=== PATIENT | female | born 1990 | race Caucasian/White ===

== ENCOUNTER → 2020-06-07 | Outpatient (CLI) | payer SELFPAY | LOC: M LABSMTC 09:02 | PROVIDERS: ATTEND Pediatrics | DX: Z20.828 Contact with and (suspected) exposure to other viral communicable diseases (principal) ==

== ENCOUNTER → 2021-09-01 | Outpatient (REF) | payer OTHER ==
[2021-09-01 12:50] LABS: HEMATOCRIT 38.7 % (36.0-47.0); HEMOGLOBIN 12.7 g/dl (12.0-15.5); MEAN CORPUSCULAR HEMOGLOBIN 31.1 pg (27.0-33.0); MEAN CORPUSCULAR HGB CONC 32.8 g/dl (32.0-36.5); MEAN CORPUSCULAR VOLUME 94.9 fl (80.0-96.0); PLATELET COUNT, AUTOMATED 250 10^3/uL (150-450); RED BLOOD COUNT 4.08 10^6/uL (4.00-5.40); WHITE BLOOD COUNT 6.5 10^3/uL (4.0-10.0)
[2021-09-01 13:28] LABS: ALT/SGPT 17 U/L (12-78); BILIRUBIN,TOTAL 0.4 MG/DL (0.2-1.0); BLOOD UREA NITROGEN 13 MG/DL (7-18); CALCIUM LEVEL 9.5 MG/DL (8.5-10.1); CARBON DIOXIDE LEVEL 28 MEQ/L (21-32); CHLORIDE LEVEL 108 MEQ/L (98-107); CHOLESTEROL LEVEL 170 MG/DL (<200); CHOLESTEROL RISK RATIO 3.333 (<5); CREATININE FOR GFR 0.74 MG/DL (0.55-1.30); FREE T4 1.16 NG/DL (0.76-1.46); GLOMERULAR FILTRATION RATE > 60.0 (>60); GLUCOSE, FASTING 93 MG/DL (70-100); HDL CHOLESTEROL 51 MG/DL (>40); LDL CHOLESTEROL 102 MG/DL (<100); NON-HDL-C 119 MG/DL; POTASSIUM SERUM 4.2 MEQ/L (3.5-5.1); SODIUM LEVEL 141 MEQ/L (136-145); TOTAL PROTEIN 6.8 GM/DL (6.4-8.2); TRIGLYCERIDES LEVEL 86 MG/DL (<150)
[2021-09-01 13:31] LABS: FOLATE 19.4 NG/ML; VITAMIN B12 LEVEL 690 PG/ML
== END ==
LOC: M SFHCADAM 09:07
PROVIDERS: ATTEND Physician Assistant
DX: R63.5 Abnormal weight gain (principal); E53.8 Deficiency of other specified B group vitamins; K64.9 Unspecified hemorrhoids; Z13.220 Encounter for screening for lipoid disorders; Z13.1 Encounter for screening for diabetes mellitus
CPT/HCPCS: 80053; 80061; 82607; 82746; 84439; 84443; 85027; G0463

== ENCOUNTER → 2022-06-10 | Outpatient (CLI) | payer OTHER | LOC: M SOG 13:37 | PROVIDERS: ATTEND Physician Assistant | DX: M79.641 Pain in right hand (principal); M79.642 Pain in left hand ==

== ENCOUNTER → 2022-08-19 | Outpatient (CLI) | payer OTHER ==
[~2022-08-19] MED LIST: PROM12.56 PO
[2022-08-19 18:00] LABS: HEMATOCRIT 35.7 % (36.0-47.0); HEMOGLOBIN 11.8 g/dl (12.0-15.5); MEAN CORPUSCULAR HEMOGLOBIN 31.4 pg (27.0-33.0); MEAN CORPUSCULAR HGB CONC 33.1 g/dl (32.0-36.5); MEAN CORPUSCULAR VOLUME 94.9 fl (80.0-96.0); PLATELET COUNT, AUTOMATED 226 10^3/uL (150-450); RED BLOOD COUNT 3.76 10^6/uL (4.00-5.40)
[2022-08-19 20:04] LABS: GC DNA AMPLIFICATION NEGATIVE (NEGATIVE)
[2022-08-19 20:49] LABS: HIV 1&2 SCREEN CENTAUR NEGATIVE (NEGATIVE)
== END ==
LOC: M PLALAB 15:56
PROVIDERS: ATTEND Obstetrics & Gynecology
DX: Z34.91 Encounter for supervision of normal pregnancy, unspecified, first trimester (principal)
CPT/HCPCS: 36415; 85027; 86762; 86780; 86803; 86850; 86900; 86901; 87086; 87340; 87389; 87624; 87810; 87850; G0123

== ENCOUNTER → 2022-09-17 | Outpatient (CLI) | payer OTHER | LOC: M WHC 08:40 | PROVIDERS: ATTEND Advanced Practice Midwife | DX: Z34.02 Encounter for supervision of normal first pregnancy, second trimester (principal) ==

== ENCOUNTER → 2022-10-29 | Outpatient (CLI) | payer OTHER ==
[2022-10-29 17:26] LABS: HEMATOCRIT 35.5 % (36.0-47.0); HEMOGLOBIN 11.6 g/dl (12.0-15.5); MEAN CORPUSCULAR HEMOGLOBIN 31.1 pg (27.0-33.0); MEAN CORPUSCULAR HGB CONC 32.7 g/dl (32.0-36.5); MEAN CORPUSCULAR VOLUME 95.2 fl (80.0-96.0); PLATELET COUNT, AUTOMATED 222 10^3/uL (150-450); RED BLOOD COUNT 3.73 10^6/uL (4.00-5.40); WHITE BLOOD COUNT 13.4 10^3/uL (4.0-10.0)
[2022-10-29 18:59] LABS: GC DNA AMPLIFICATION NEGATIVE (NEGATIVE)
== END ==
LOC: M PLALAB 14:30
PROVIDERS: ATTEND Specialist
DX: Z34.02 Encounter for supervision of normal first pregnancy, second trimester (principal); Z3A.00 Weeks of gestation of pregnancy not specified

== ENCOUNTER 2022-12-20 09:40 | Outpatient (CLI) | payer OTHER ==
[~2022-12-20] VITALS: Ht 167.6 cm; Wt 91.6 kg
[2022-12-20 10:02] VITALS: BP 135/83
[2022-12-20] MEDS ORDERED: PRENTAB9 PO (10:11)
[2022-12-20] MEDS ORDERED: MAGN400C2 PO (10:12)
[2022-12-20] MEDS ORDERED: HOME MED LIST COMPLETE! XX SCH (10:15)
[2022-12-20 11:05] VITALS: BP 125/79
[2022-12-20] MEDS ORDERED: LACTATED RINGER'S 1000 ML IV ONE (11:35)
[2022-12-20] MEDS ORDERED: PROMETHAZINE 25MG/ML 1ML VIAL IV ONE (11:35)
[2022-12-20] MEDS ORDERED: METOCLOPRAMIDE INJ 10MG/2ML VIAL IV ONE (11:35)
[2022-12-20 12:07] LABS: HEMATOCRIT 37.2 % (36.0-47.0); HEMOGLOBIN 12.1 g/dl (12.0-15.5); MEAN CORPUSCULAR HEMOGLOBIN 30.8 pg (27.0-33.0); MEAN CORPUSCULAR HGB CONC 32.5 g/dl (32.0-36.5); MEAN CORPUSCULAR VOLUME 94.7 fl (80.0-96.0); PLATELET COUNT, AUTOMATED 196 10^3/uL (150-450); RED BLOOD COUNT 3.93 10^6/uL (4.00-5.40); WHITE BLOOD COUNT 15.8 10^3/uL (4.0-10.0)
[2022-12-20 12:13] VITALS: BP 139/81
[2022-12-20 12:37] LABS: ALBUMIN 2.7 G/DL (3.2-5.2); ALKALINE PHOSPHATASE 95 U/L (46-116); ALT/SGPT 15 U/L (7.0-40); AST/SGOT 16 U/L (<34); BILIRUBIN,TOTAL 0.8 MG/DL (0.3-1.2); BLOOD UREA NITROGEN 10 MG/DL (9-23); CALCIUM LEVEL 8.3 MG/DL (8.5-10.1); CARBON DIOXIDE LEVEL 21 MMOL/L (20-31); CHLORIDE LEVEL 104 MMOL/L (98-107); CREATININE FOR GFR 0.47 MG/DL (0.55-1.30); GLOMERULAR FILTRATION RATE > 60.0 (>60); GLUCOSE, FASTING 94 MG/DL (60-100); POTASSIUM SERUM 3.9 MMOL/L (3.5-5.1); SODIUM LEVEL 136 MMOL/L (136-145)
[2022-12-20 18:20] LABS: TOTAL PROTEIN 5.8 G/DL (5.7-8.2)
== END 2022-12-20 14:15 | disposition home or self-care (01) ==
LOC: M LDO 09:40
PROVIDERS: ATTEND Advanced Practice Midwife
DX: O21.8 Other vomiting complicating pregnancy (principal); O26.893 Other specified pregnancy related conditions, third trimester; R19.7 Diarrhea, unspecified; Z3A.33 33 weeks gestation of pregnancy
CPT/HCPCS: 36415; 59025; 80053; 85027; 96374; 96376; G0463; J2550

== ENCOUNTER → 2023-01-12 | Outpatient (REF) | payer OTHER ==
[~2023-01-12] MED LIST changes: +MAGN400C2 PO; +PRENTAB9 PO
== END ==
LOC: M SFHCWAGY 17:20
PROVIDERS: ATTEND Obstetrics & Gynecology
DX: Z34.93 Encounter for supervision of normal pregnancy, unspecified, third trimester (principal)

== ENCOUNTER → 2023-02-02 | Outpatient (CLI) | payer OTHER ==
[2023-02-02 17:30] LABS: HEMATOCRIT 37.7 % (36.0-47.0); HEMOGLOBIN 12.5 g/dl (12.0-15.5); MEAN CORPUSCULAR HEMOGLOBIN 31.9 pg (27.0-33.0); MEAN CORPUSCULAR HGB CONC 33.2 g/dl (32.0-36.5); MEAN CORPUSCULAR VOLUME 96.2 fl (80.0-96.0); PLATELET COUNT, AUTOMATED 223 10^3/uL (150-450); RED BLOOD COUNT 3.92 10^6/uL (4.00-5.40); WHITE BLOOD COUNT 13.4 10^3/uL (4.0-10.0)
[2023-02-02 17:51] LABS: URIC ACID 5.1 MG/DL (3.1-7.8)
[2023-02-02 17:53] LABS: LDH LACTATE DEHYDROGENASE 155 U/L (120-246)
[2023-02-02 17:54] LABS: ALT/SGPT < 9 U/L (7.0-40); AST/SGOT 12 U/L (<34); BILIRUBIN,TOTAL 0.4 MG/DL (0.3-1.2); CREATININE FOR GFR 0.55 MG/DL (0.55-1.30); GLOMERULAR FILTRATION RATE > 60.0 (>60)
[2023-02-02 18:02] LABS: TOTAL PROTEIN,RANDOM URINE 8.5 MG/DL (0.0-14.0)
[2023-02-02 18:07] LABS: CREATININE,RANDOM URINE 74.2 MG/DL
== END ==
LOC: M PLALAB 16:05
PROVIDERS: ATTEND Advanced Practice Midwife
DX: Z34.03 Encounter for supervision of normal first pregnancy, third trimester (principal)

== ENCOUNTER 2023-02-14 07:14 | Inpatient (IN) | payer OTHER ==
[2023-02-14] VITALS (20 sets, daily range): BP systolic 109–156; BP diastolic 55–96
[~2023-02-14] VITALS: Ht 167.6 cm; Wt 100.7 kg
[2023-02-14] MEDS ORDERED: LACTATED RINGER'S 1000 ML IV STA (08:18)
[2023-02-14] MEDS ORDERED: OXYTOCIN INJ 10UNITS/ML 1ML VIAL IM PRN (08:20)
[2023-02-14] MEDS ORDERED: OXYTOCIN DRIP 30 UNITS in IV 1 EA IV PRN (08:20)
[2023-02-14] MEDS ORDERED: LIDOCAINE 1% MDV 20ML VIAL INFIL PRN (08:20)
[2023-02-14] MEDS ORDERED: TRANEXAMIC ACID INJection 1,000 MG in NS 100 ML IV PRN (08:20)
[2023-02-14] MEDS ORDERED: METHYLERGONOVINE MALEATE 0.2MG/ML 1ML VIAL IM PRN (08:20)
[2023-02-14] MEDS ORDERED: CARBOPROST TROMETHAMINE 250 MCG/ML AMP IM PRN (08:20)
[2023-02-14] MEDS ORDERED: COLA100C5 PO (08:53)
[2023-02-14] MEDS ORDERED: TUMS500C PO (08:53)
[2023-02-14] MEDS ORDERED: ACET325C5 PO (08:53)
[2023-02-14] MEDS ORDERED: HOME MED LIST COMPLETE! XX SCH (08:55)
[2023-02-14 09:10] LABS: HEMOGLOBIN 11.7 g/dl (12.0-15.5); MEAN CORPUSCULAR HGB CONC 33.4 g/dl (32.0-36.5); MEAN CORPUSCULAR VOLUME 95.6 fl (80.0-96.0); PLATELET COUNT, AUTOMATED 171 10^3/uL (150-450); RED BLOOD COUNT 3.66 10^6/uL (4.00-5.40); WHITE BLOOD COUNT 11.3 10^3/uL (4.0-10.0)
[2023-02-14] MEDS: miSOPROStol 50MCG 1/2 TABLET PO SCH ×2 (10:24→14:24)
[2023-02-14] MEDS ORDERED: PROMETHAZINE 25MG/ML 1ML VIAL IV ONE (20:25)
[2023-02-14] MEDS ORDERED: diphenhydrAMINE 50MG/ML VIAL IV PRN (21:30)
[2023-02-14] MEDS ORDERED: LR 500 ML IV PRN (21:30)
[2023-02-14] MEDS ORDERED: EPIDURAL/PCA KEYS XX PRN (21:30)
[2023-02-14] MEDS ORDERED: ePHEDrine SULFATE 25 MG/5 ML(5MG/ML) SYRINGE IVP PRN (21:30)
[2023-02-14] MEDS ORDERED: ONDANSETRON 4MG 2ML VIAL IV PRN (21:30)
[2023-02-14] MEDS ORDERED: ROPIVACAINE HCL IVBAG 200 ML EPIDURAL SCH (21:30)
[2023-02-14] MEDS ORDERED: NALOXONE INJ 0.4MG/1ML VIAL IV PRN (21:30)
[2023-02-14] MEDS ORDERED: OXYTOCIN DRIP 30 UNITS in IV 1 EA IV SCH (23:40)
[2023-02-14] MEDS ORDERED: LR 1,000 ML IV SCH (23:40)
[2023-02-15] VITALS (34 sets, daily range): BP systolic 92–144; BP diastolic 53–96
[2023-02-15] MEDS ORDERED: OMEPRAZOLE 20MG CAP PO ONE (07:50)
[2023-02-15] MEDS ORDERED: ceFAZolin SOD 2 GM in IV 1 EA IV ONE (11:45)
[2023-02-15] MEDS ORDERED: AZITHROMYCIN INJ 500 MG, VIAL MATE ADAPTER 1 EACH in NS 250 ML IV ONE (11:45)
[2023-02-15] MEDS ORDERED: BICITRA 30ML SOLN UDC PO ONE (11:45)
[2023-02-15] MEDS ORDERED: ePHEDrine SULFATE 25 MG/5 ML(5MG/ML) SYRINGE As Ordered ONE (12:38)
[2023-02-15] MEDS ORDERED: OXYTOCIN 30UNITS IN 0.9% NaCl 500ML IV BAG As Ordered ONE (12:38)
[2023-02-15] MEDS ORDERED: PHENYLephrine 500MCG 5ML (100MCG/ML) SYRINGE As Ordered ONE (12:38)
[2023-02-15] MEDS ORDERED: MORPHINE PRES-FREE INJ 10 MG/10 ML VIAL As Ordered ONE (12:38)
[2023-02-15] MEDS ORDERED: KETOROLAC 60MG 2ML VIAL As Ordered ONE (13:47)
[2023-02-15] MEDS ORDERED: METOCLOPRAMIDE INJ 10MG/2ML VIAL IV PRN ×2 (14:30)
[2023-02-15] MEDS ORDERED: SLF 3 ML SYR IV SCH (14:30)
[2023-02-15] MEDS ORDERED: oxyCODONE 5MG TAB PO PRN ×3 (14:30→14:35)
[2023-02-15] MEDS ORDERED: diphenhydrAMINE 50MG/ML VIAL IV PRN (14:30)
[2023-02-15] MEDS ORDERED: NALOXONE INJ 0.4MG/1ML VIAL IV PRN ×2 (14:30)
[2023-02-15] MEDS ORDERED: LR 1,000 ML IV SCH (14:30)
[2023-02-15] MEDS ORDERED: **NOTE PATIENT COMMENT** MISC XX SCH (14:30)
[2023-02-15] MEDS ORDERED: OXYTOCIN DRIP 30 UNITS in IV 1 EA IV SCH (14:35)
[2023-02-15] MEDS ORDERED: PROMETHAZINE 25 MG TAB PO PRN (14:35)
[2023-02-15] MEDS ORDERED: OXYTOCIN DRIP 30 UNITS in IV 1 EA IV ONE (14:35)
[2023-02-15] MEDS ORDERED: DOCUSATE SODIUM 100MG CAPSULE PO PRN (14:35)
[2023-02-15] MEDS ORDERED: RHOGAM 300MCG (1500IU) INJ IM SCH (14:35)
[2023-02-15] MEDS ORDERED: KETOROLAC 30 MG/ML 1ML VIAL IV SCH (15:00)
[2023-02-15] MEDS ORDERED: SUMAtriptan SUCCINATE 25 MG TAB PO ONE (15:00)
[2023-02-15] MEDS: ACETAMINOPHEN 500 MG TAB PO SCH ×2 (17:12→23:03)
[2023-02-15] MEDS: KETOROLAC 30 MG/ML 1ML VIAL IV SCH (19:52)
[2023-02-16] MEDS: KETOROLAC 30 MG/ML 1ML VIAL IV SCH ×2 (01:53→08:07)
[2023-02-16 02:00] VITALS: BP 116/54
[2023-02-16] MEDS: ACETAMINOPHEN 500 MG TAB PO SCH ×3 (05:06→17:48)
[2023-02-16 06:00] VITALS: BP 122/57
[2023-02-16 07:03] LABS: HEMATOCRIT 27.6 % (36.0-47.0); MEAN CORPUSCULAR HEMOGLOBIN 32.1 pg (27.0-33.0); MEAN CORPUSCULAR HGB CONC 33.7 g/dl (32.0-36.5); MEAN CORPUSCULAR VOLUME 95.2 fl (80.0-96.0); PLATELET COUNT, AUTOMATED 144 10^3/uL (150-450); WHITE BLOOD COUNT 14.9 10^3/uL (4.0-10.0)
[2023-02-16 07:06] LABS: HEMOGLOBIN 9.3 g/dl (12.0-15.5)
[2023-02-16] MEDS: PRENATAL VITAMINS CHEWABLE TABLET PO SCH (09:25)
[2023-02-16] MEDS: SIMETHICONE 80MG CHEW TAB PO PRN ×2 (09:25→11:42)
[2023-02-16] MEDS ORDERED: SUMAtriptan SUCCINATE 25 MG TAB PO ONE (10:00)
[2023-02-16 10:05] VITALS: BP 123/61
[2023-02-16] MEDS: IBUPROFEN 600MG TAB PO SCH ×2 (14:22→20:02)
[2023-02-16 19:30] VITALS: BP 131/56
[2023-02-16 22:00] VITALS: BP 128/60
[2023-02-17] MEDS: ACETAMINOPHEN 500 MG TAB PO SCH ×3 (00:58→12:00)
[2023-02-17] MEDS: IBUPROFEN 600MG TAB PO SCH ×2 (01:00→08:33)
[2023-02-17 02:00] VITALS: BP 109/56
[2023-02-17 06:00] VITALS: BP 134/79
[2023-02-17] MEDS ORDERED: SUMAtriptan SUCCINATE 25 MG TAB PO ONE (06:00)
[2023-02-17] MEDS: PRENATAL VITAMINS CHEWABLE TABLET PO SCH (08:33)
[2023-02-17] MEDS ORDERED: MEASLES,MUMPS,RUBELLA VACCINE INJ (MMR-II) SC.IMMUN ONE (09:00)
[2023-02-17 10:00] VITALS: BP 127/88
[2023-02-17] MEDS ORDERED: IBUP-1022 PO (10:12)
== END 2023-02-17 12:14 | disposition home or self-care (01) | DRG 773 ==
LOC: M LDI 07:35 → M OBS 02-15 15:44
PROVIDERS: ADMIT Advanced Practice Midwife; ATTEND Obstetrics & Gynecology
PROC: 3E0P7GC Introduction of Other Therapeutic Substance into Female Reproductive, Via Natural or Artificial Opening (ICD-10-PCS; 2023-02-14)
PROC: 10907ZC Drainage of Amniotic Fluid, Therapeutic from Products of Conception, Via Natural or Artificial Opening (ICD-10-PCS; 2023-02-15)
PROC: 10D00Z1 Extraction of Products of Conception, Low, Open Approach (ICD-10-PCS; principal; 2023-02-15 14:27)
DX: O48.0 Post-term pregnancy (principal); Z3A.41 41 weeks gestation of pregnancy; K58.2 Mixed irritable bowel syndrome; O99.62 Diseases of the digestive system complicating childbirth; Z88.8 Allergy status to other drugs, medicaments and biological substances; Z79.899 Other long term (current) drug therapy; O64.0XX0 Obstructed labor due to incomplete rotation of fetal head, not applicable or unspecified; Z37.0 Single live birth

== ENCOUNTER → 2023-11-09 | Outpatient (REF) | payer OTHER ==
[~2023-11-09] MED LIST changes: +ACET325C5 PO; +COLA100C5 PO; +IBUP-1022 PO; +TUMS500C PO
[2023-11-09 13:08] LABS: HEMATOCRIT 40.6 % (36.0-47.0); HEMOGLOBIN 13.1 g/dl (12.0-15.5); MEAN CORPUSCULAR HEMOGLOBIN 30.4 pg (27.0-33.0); MEAN CORPUSCULAR HGB CONC 32.3 g/dl (32.0-36.5); MEAN CORPUSCULAR VOLUME 94.2 fl (80.0-96.0); PLATELET COUNT, AUTOMATED 251 10^3/uL (150-450); RED BLOOD COUNT 4.31 10^6/uL (4.00-5.40); WHITE BLOOD COUNT 7.8 10^3/uL (4.0-10.0)
[2023-11-09 13:38] LABS: ALKALINE PHOSPHATASE 75 U/L (46-116); ALT/SGPT 10 U/L (7.0-40); AST/SGOT < 8 U/L (<34); BILIRUBIN,TOTAL 0.5 MG/DL (0.3-1.2); BLOOD UREA NITROGEN 11 MG/DL (9-23); CALCIUM LEVEL 9.1 MG/DL (8.5-10.1); CARBON DIOXIDE LEVEL 29 MMOL/L (20-31); CHLORIDE LEVEL 106 MMOL/L (98-107); CREATININE FOR GFR 0.72 MG/DL (0.55-1.30); GLOMERULAR FILTRATION RATE > 60.0 (>60); GLUCOSE, FASTING 88 MG/DL (60-100); MAGNESIUM LEVEL 2.1 MG/DL (1.8-2.4); POTASSIUM SERUM 4.7 MMOL/L (3.5-5.1); SODIUM LEVEL 140 MMOL/L (136-145); TOTAL PROTEIN 6.7 G/DL (5.7-8.2)
[2023-11-09 13:39] LABS: FREE T4 1.02 NG/DL (0.89-1.76)
== END ==
LOC: M SFHCADAM 10:00
PROVIDERS: ATTEND Physician Assistant
DX: R00.2 Palpitations (principal)

== ENCOUNTER → 2023-12-12 | Outpatient (CLI) | payer OTHER | LOC: M PLAIMG 08:01 | PROVIDERS: ATTEND Physician Assistant | DX: I49.3 Ventricular premature depolarization (principal) ==

== ENCOUNTER → 2024-01-04 | Outpatient (CLI) | payer OTHER | LOC: M SOG 10:00 | PROVIDERS: ATTEND Orthopaedic Surgery | DX: M25.511 Pain in right shoulder (principal) ==

== ENCOUNTER → 2024-01-10 | Outpatient (REF) | payer OTHER | LOC: M SFHCPLAZ 14:34 | PROVIDERS: ATTEND Physician Assistant Medical | DX: R59.0 Localized enlarged lymph nodes (principal) ==

== ENCOUNTER → 2024-01-10 | Outpatient (CLI) | payer OTHER ==
[2024-01-10 18:09] LABS: BASO # 0.1 10^3/uL (0.0-0.2); BASO % 0.6 % (0.0-1.0); EOS # 0.2 10^3/uL (0.0-0.5); HEMATOCRIT 40.9 % (36.0-47.0); HEMOGLOBIN 13.3 g/dl (12.0-15.5); LYMPH # 2.1 10^3/uL (1.5-5.0); LYMPH % 14.2 % (24.0-44.0); MEAN CORPUSCULAR HEMOGLOBIN 30.6 pg (27.0-33.0); MEAN CORPUSCULAR HGB CONC 32.5 g/dl (32.0-36.5); MONO # 0.8 10^3/uL (0.0-0.8); MONO % 5.8 % (2.0-8.0); NEUTROPHILS # 11.2 10^3/uL (1.5-8.5); NEUTROPHILS % 77.8 % (36.0-66.0); PLATELET COUNT, AUTOMATED 345 10^3/uL (150-450); RED BLOOD COUNT 4.35 10^6/uL (4.00-5.40); WHITE BLOOD COUNT 14.5 10^3/uL (4.0-10.0)
[2024-01-10 19:21] LABS: HEPATITIS C VIRUS ABY INDEX < 0.02 INDEX (<0.8)
[2024-01-10 19:22] LABS: HEPATITIS B CORE ANTIBODY IGM NEGATIVE (NEGATIVE)
== END ==
LOC: M PLALAB 15:15
PROVIDERS: ATTEND Physician Assistant Medical
DX: R59.0 Localized enlarged lymph nodes (principal)

== ENCOUNTER → 2024-01-24 | Outpatient (CLI) | payer OTHER | LOC: M ADAMS 15:09 | PROVIDERS: ATTEND Physician Assistant | DX: R61 Generalized hyperhidrosis (principal) ==